=== PATIENT | male | born 2000 | race Caucasian/White ===

== ENCOUNTER 2019-05-05 18:27 | Emergency (ER) | payer BC ==
[2019-05-05] MEDS ORDERED: Amoxicillin 500 MG Cap ONE (18:45)
[2019-05-05 18:59] VITALS: BP 157/99; PULSE 60
--- NOTE | 2019-05-05 19:08 | EDM.PDOC ---
ED HPI GENERAL MEDICAL PROBLEM - General Chief Complaint: General Stated Complaint: Earache Time Seen by Provider: 05/05/19 18:30 Source of Information: Reports: Patient History Limitations: Reports: No Limitations - History of Present Illness INITIAL COMMENTS - FREE TEXT/NARRATIVE: This patient presents to the ED for evaluation of ear pain.The pain started in his right earlier this afternoon and has gotten worse. He has had a cough with a runny nose for the past 3-4 days but it was "minor." He has not had a fever. His appetite is good but has not had any vomiting or diarrhea. He states he had a lot of ear infections when he was young. He denies other concerns or complaints. Onset: Today Ear Pain Score (Numeric/FACES): 8 - Related Data Allergies Allergy/AdvReac Type Severity Reaction Status Date / Time No Known Allergies Allergy Verified 05/05/19 18:39 Home Meds: Home Meds NK [No Known Home Meds] 05/05/19 [History] ED ROS ENT - Review of Systems Review Of Systems: See Below Constitutional: Denies: Fever, Decreased Appetite HEENT: Reports: Ear Pain, Rhinitis. Denies: Ear Discharge, Eye Discharge, Eye Pain, Throat Pain, Throat Swelling Respiratory: Reports: No Symptoms Cardiovascular: Reports: No Symptoms Musculoskeletal: Reports: No Symptoms Skin: Reports: No Symptoms ED EXAM, ENT - Physical Exam Exam: See Below Exam Limited By: No Limitations General Appearance: Alert, WD/WN, No Apparent Distress Eye Exam: Bilateral Eye: PERRL Ears: Normal External Exam, Normal Canal, Hearing Grossly Normal, TM Bulging ( right only), TM Erythema (right only) Nose: Normal Inspection, Nasal Discharge Mouth/Throat: Normal Inspection, Normal Oropharynx Head: Atraumatic, Normocephalic Neck: Normal Inspection, Full Range of Motion Respiratory/Chest: No Respiratory Distress Back: Normal Inspection Extremities: Normal Inspection Neurological: Alert, Oriented Skin: Warm, Dry, Intact Course - Vital Signs Last Recorded V/S: Last Vital Signs Temp 36.6 C 05/05/19 18:55 Pulse 60 05/05/19 18:55 Resp 16 05/05/19 18:55 BP 157/99 H 05/05/19 18:55 Pulse Ox 100 05/05/19 18:55 Departure - Departure Time of Disposition: 19:00 Disposition: Home, Self-Care 01 Condition: Good Clinical Impression: Otitis media - Discharge Information Instructions: Amoxicillin chewable tablets, Otitis Media, Adult, [id number] Forms: ED Department Discharge Care Plan Goals: Take amoxicillin 500mg three x day and use (OTC) ibuprofen for pain. 3 tablets 4 x day as needed for pain. Drink plenty of fluids. If doesn't resolve, follow up with physician at home. Sepsis Event Note - Evaluation Sepsis Screening Result: No Definite Risk - Focused Exam Vital Signs: Vital Signs Temp Pulse Resp BP Pulse Ox 05/05/19 18:55 36.6 C 60 16 157/99 H 100 Date Exam was Performed: 05/05/19 Time Exam was Performed: 19:02
== END 2019-05-05 18:50 | disposition home or self-care (01) ==
LOC: LB.ED 18:27
DX: H66.91 Otitis media, unspecified, right ear (principal)
CPT/HCPCS: 99282; A9270-GY